=== PATIENT | female | born 1990 | race African-American/Black ===

== ENCOUNTER 2016-11-29 03:22 | Emergency (ER) | payer BC ==
[2016-11-29 03:40] LABS: ABSOLUTE EOSINOPHILS # (AUTO) 0.1 10^3/uL (0.0-0.6); ABSOLUTE LYMPHOCYTES (AUTO) 0.8 10^3/uL (0.5-4.7); ABSOLUTE MONOCYTES (AUTO) 0.5 10^3/uL (0.1-1.4); ABSOLUTE NEUT (AUTO) 5.6 10^3/uL (1.7-8.2); BASOPHILS % (AUTO) 0.3 % (0-2); EOSINOPHILS % (AUTO) 0.9 % (0-6); HEMATOCRIT 35.8 % (36.0-47.0); HEMOGLOBIN 12.4 g/dL (12.0-15.5); HGB HCT DIFFERENCE 1.4; LYMPHOCYTES % (AUTO) 11.4 % (13-45); MEAN CORPUSCULAR HEMOGLOBIN 33.7 pg (27.0-33.4); MEAN CORPUSCULAR HGB CONC 34.7 g/dL (32.0-36.0); MEAN CORPUSCULAR VOLUME 97 fl (80-97); MONOCYTES % (AUTO) 7.1 % (3-13); RED BLOOD COUNT 3.68 10^6/uL (3.72-5.28); RED CELL DISTRIBUTION WIDTH 12.4 % (11.5-14.0); SEGMENTED NEUTROPHILS % (AUTO) 80.3 % (42-78); WHITE BLOOD COUNT 6.9 10^3/uL (4.0-10.5)
[2016-11-29 03:57] LABS: APPEARANCE,URINE SLIGHTLY-CLOUDY; BILIRUBIN,URINE NEGATIVE (NEGATIVE); GLUCOSE, URINE NEGATIVE (NEGATIVE); KETONES,URINE NEGATIVE (NEGATIVE); LEUKOCYTE ESTERASE,URINE NEGATIVE (NEGATIVE); NITRITE,URINE NEGATIVE (NEGATIVE); PROTEIN,URINE 30 mg/dL (NEGATIVE); URINE SPECIFIC GRAVITY 1.023; UROBILINOGEN,URINE NEGATIVE mg/dL (<2.0)
[2016-11-29 04:10] LABS: ALANINE AMINOTRANSFERASE 18 U/L (9-52); ALBUMIN 3.8 g/dL (3.5-5.0); ALKALINE PHOSPHATASE 46 U/L (38-126); ANION GAP 10 (5-19); ASPARTATE AMINO TRANSFERASE 12 U/L (14-36); BILIRUBIN,DIRECT 0.3 mg/dL (0.0-0.4); BILIRUBIN,TOTAL 0.4 mg/dL (0.2-1.3); BLOOD UREA NITROGEN 9 mg/dL (7-20); CALCIUM 9.4 mg/dL (8.4-10.2); CARBON DIOXIDE 21 mmol/L (22-30); CHLORIDE 106 mmol/L (98-107); GLUCOSE 111 mg/dL (75-110); LIPASE 59.2 U/L (23-300); POTASSIUM 3.3 mmol/L (3.6-5.0); SODIUM 137.1 mmol/L (137-145); TOTAL PROTEIN 6.5 g/dL (6.3-8.2)
[2016-11-29] MEDS ORDERED: MORPHINE SULFATE 10 MG/ML INJ IV ONE (04:34)
[2016-11-29] MEDS ORDERED: ONDANSETRON HCL INJ/PF 4 MG/2 ML SDV IV ONE (04:35)
[2016-11-29] MEDS ORDERED: NORMAL SALINE 1000 ML 1,000 ML IV ONE (04:37)
[2016-11-29] MEDS ORDERED: MORPHINE SULFATE 10 MG/ML INJ ONE (04:38)
[2016-11-29] MEDS ORDERED: ONDANSETRON HCL INJ/PF 4 MG/2 ML SDV ONE (04:38)
--- NOTE | 2016-11-29 04:45 | ER Document Report ---
ED GI/ <KIMMIE VARGAS - Last Filed: 11/29/16 05:58> <AMOS SHOOK - Last Filed: 11/29/16 10:17> - General Chief Complaint: Flank Pain Stated Complaint: RIGHT FLANK PAIN Time Seen by Provider: 11/29/16 04:32 Notes: 26-year-old female with history of asthma presents with severe right flank and right-sided abdominal pain starting about 2 hours prior to arrival. Sharp radiating towards the right lower abdomen now seems to have moved towards the right lower abdomen and right labial region. No fever. No dysuria or hematuria. She was recently diagnosed 2 days ago with a yeast infection and is taking Diflucan. She has had nausea and vomiting. She did receive some EMS Toradol and Zofran with some slight improvement the pain seems to be coming back. Denies fever. No left-sided symptoms. No prior abdominal surgeries but she has had female surgery. (ALICIAKIMMIE) Past Medical History - Social History Smoking Status: Never Smoker Family History: Reviewed & Not Pertinent <KIMMIE VARGAS - Last Filed: 11/29/16 05:58> Review of Systems - Review of Systems -: Yes All other systems reviewed and negative <ALICIA,JOHN F - Last Filed: 11/29/16 05:58> Physical Exam <KIMMIE VARGAS - Last Filed: 11/29/16 05:58> <AMOS SHOOK - Last Filed: 11/29/16 10:17> - Vital signs Vitals: Temp Pulse Resp BP Pulse Ox 98.3 F 77 18 115/67 100 11/29/16 03:23 11/29/16 03:23 11/29/16 03:23 11/29/16 03:23 11/29/16 03:23 - Notes Notes: GENERAL: VS as per nursing doc. thin female, moderate distress secondary to pain. HEAD: Atraumatic, normocephalic. EYES: Pupils equal round and reactive to light, extraocular movements intact, sclera anicteric, no conjunctival injection or discharge. ENT: Nares patent, oropharynx clear without exudates, moist mucous membranes. NECK: Supple LUNGS: Breath sounds clear to auscultation bilaterally and equal. No wheezes rales or rhonchi. HEART: Regular rate and rhythm without murmurs. ABDOMEN: Soft, mild diffuse right-sided abdominal tenderness extending to the right flank. BACK: Moderate right CVA tenderness. EXTREMITIES: Normal range of motion. NEUROLOGICAL: Normal motor and sensory exams grossly. Moves all extremities well. PSYCH: Anxious but notably in pain SKIN: Warm, dry. (KIMMIE VARGAS) Course - Laboratory Result Diagrams: 11/29/16 03:30 11/29/16 03:30 - Diagnostic Test Radiology reviewed: Reports reviewed - 4 mm distal ureteral calculus and 3.9 cm cystic right adnexal structure. <KIMMIE VARGAS - Last Filed: 11/29/16 05:58> - Laboratory Result Diagrams: 11/29/16 03:30 11/29/16 03:30 <AMOS SHOOK - Last Filed: 11/29/16 10:17> - Re-evaluation Re-evalutation: 11/29/16 05:54 Patient is feeling much better. She is comfortable going home. We discussed kidney stones as this is her initial one. As well discussed the 3.9 cm adnexal cystic structure that will require follow-up. She voices understanding. Medication warnings discussed and understood. (KIMMIE VARGAS) - Vital Signs Vital signs: Temp Pulse Resp BP Pulse Ox 98.0 F 82 17 117/75 98 11/29/16 06:56 11/29/16 06:56 11/29/16 06:56 11/29/16 06:56 11/29/16 06:56 - Laboratory Laboratory results interpreted by me: 11/29/16 11/29/16 11/29/16 03:30 03:30 03:39 RBC 3.68 L Hct 35.8 L MCH 33.7 H Seg Neutrophils % 80.3 H Lymphocytes % 11.4 L Potassium 3.3 L Carbon Dioxide 21 L Glucose 111 H AST 12 L Urine Protein 30 H Urine Blood LARGE H Discharge <KIMMIE VARGAS - Last Filed: 11/29/16 05:58> <AMOS SHOOK - Last Filed: 11/29/16 10:17> - Discharge Clinical Impression: Calculus of ureter Condition: Good Disposition: HOME, SELF-CARE Instructions: Kidney Stone ([facility]) Additional Instructions: Please make sure you get follow-up for the probable ovarian cyst as discussed. Push non-caffeinated fluids. Start initially with ibuprofen or Aleve for discomfort. Return for worsening or concern. Prescriptions: Hydrocodone/Acetaminophen [Sebastian 10-325 mg Tablet] 1 tab PO Q6HP PRN #20 tablet PRN Reason: For Pain Ondansetron [Zofran Odt 4 mg Tablet] 1 - 2 tab PO Q4H PRN #15 tab.rapdis PRN Reason: For Nausea/Vomiting Referrals: [facility] [Provider Group] - Follow up as needed
--- NOTE | 2016-11-29 05:30 | RADIOLOGY REPORT (SQ) ---
EXAM DESCRIPTION: CT LTD RENAL STONE PROTOCOL ON COMPLETED DATE/TIME: 11/29/2016 5:02 am REASON FOR STUDY: Flank pain, Hematuria COMPARISON: None. TECHNIQUE: CT scan of the abdomen and pelvis performed without intravenous or oral contrast. Images reviewed with lung, soft tissue, and bone windows. Reconstructed coronal and sagittal MPR images revi ewed. All images stored on PACS. All CT scanners at this facility use dose modulation, iterative reconstruction, and/or weight based d osing when appropriate to reduce radiation dose to as low as reasonably achievable (ALARA). [facility]: Dose Right [facility]: CareDose [facility]: Dose Right [facility]: Teradose 4D [facility]: [employer] RADIATION DOSE: Up-to-date CT equipment and radiation dose reduction techniques were employed. CTDIv ol: 4.8 mGy. DLP: 234 mGy-cm.mGy. LIMITATIONS: None. FINDINGS: LOWER CHEST: No significant findings. No nodules or infiltrates. NON-CONTRASTED LIVER, SPLEEN, ADRENALS: Evaluation limited by lack of IV contrast. No identified sign ificant masses. PANCREAS: No masses. No peripancreatic inflammatory changes. GALLBLADDER: No identified stones by CT criteria. No inflammatory changes to suggest cholecystitis. RIGHT KIDNEY AND URETER: 0.4 cm calcification in the right paracentral pelvis, likely indicates a rig ht distal ureteral stone with a mild right hydronephrosis -hydroureter. LEFT KIDNEY AND URETER: No suspicious masses. Assessment limited by lack of IV contrast. No signifi cant calcifications. No hydronephrosis or hydroureter. AORTA AND RETROPERITONEUM: No aneurysm. No retroperitoneal masses or adenopathy. BOWEL AND PERITONEAL CAVITY: No obvious masses or inflammatory changes. No free fluid. APPENDIX: Normal. PELVIS, BLADDER, AND ABDOMINAL WALL:3.9 cm cystic prominence of the right adnexa. Urinary bladder is unremarkable. BONES: No significant findings. OTHER: No other significant finding. IMPRESSION: 1. Likely 0.4 cm right distal ureteral stone with low grade obstruction. 2. Indetermi connor 3.9 cm cystic lesion of the right adnexa. Correlation with pelvic sonogram recommended. COMMENT: Quality ID # [id number]: Final reports with documentation of one or more dose reduction techniques (e.g., Automated exposure control, adjustment of the mA and/or kV according to patient size, use of iterative reconstruction technique) TECHNICAL DOCUMENTATION: JOB ID: [id number] [facility] [employer]- All Rights Reserved
[2016-11-29 06:58] VITALS: BP 117/75
== END 2016-11-29 06:56 | disposition home or self-care (01) ==
LOC: ER 03:22
DX: N20.1 Calculus of ureter (principal); R10.31 Right lower quadrant pain
CPT/HCPCS: 99284; 96361; 96374; 96375; 36415; 83690; 84703; 85025; 80053; 81001; 76380; J2270; J2405; J7030